=== PATIENT | male | born 1950 | race Hispanic/Latino ===

== ENCOUNTER → 2022-04-27 | Outpatient (CLI) | payer OTHER | END | disposition home or self-care (01) | LOC: RAH 11:51 | PROVIDERS: ATTEND Family Medicine | DX: S60.321A Blister (nonthermal) of right thumb, initial encounter (principal); M79.644 Pain in right finger(s); X58.XXXA Exposure to other specified factors, initial encounter; Y93.89 Activity, other specified; Y92.89 Other specified places as the place of occurrence of the external cause; Y99.8 Other external cause status | CPT/HCPCS: 73140 ==

== ENCOUNTER → 2024-03-13 | Outpatient (CLI) | payer OTHER | END | disposition home or self-care (01) | LOC: OIH 15:51 | PROVIDERS: ATTEND Family Medicine | DX: M19.011 Primary osteoarthritis, right shoulder (principal); M89.8X1 Other specified disorders of bone, shoulder; M25.511 Pain in right shoulder | CPT/HCPCS: 73000; 73030 ==

== ENCOUNTER → 2024-05-23 | Outpatient (CLI) | payer OTHER ==
[2024-05-23 13:21] LABS: CREATININE 0.9 mg/dL (0.5-1.3); POTASSIUM 4.3 mmol/L (3.5-5.1)
== END | disposition home or self-care (01) ==
LOC: LAB 12:04
PROVIDERS: ATTEND Internal Medicine Cardiovascular Disease
DX: I10 Essential (primary) hypertension (principal)
CPT/HCPCS: 36415; 80048

== ENCOUNTER → 2024-05-26 | Outpatient (CLI) | payer OTHER ==
[~2024-05-26] MED LIST: IOHEXOL 350 MG/ML 100ML INFUS..BTL IV ONE
== END | disposition home or self-care (01) ==
LOC: RAH 08:09
PROVIDERS: ATTEND Internal Medicine Cardiovascular Disease
DX: I25.119 Atherosclerotic heart disease of native coronary artery with unspecified angina pectoris (principal); M47.815 Spondylosis without myelopathy or radiculopathy, thoracolumbar region
CPT/HCPCS: 75574; Q9967